=== PATIENT | female | born 1990 ===

== ENCOUNTER 2019-07-09 18:13 | Emergency (ER) | payer SELFPAY ==
[~2019-07-09] VITALS: Ht 160 cm; Wt 60.5 kg
[2019-07-09 18:22] VITALS: BP 136/76
== END 2019-07-09 19:30 | disposition left against medical advice (07) ==
LOC: EMS 18:13
DX: S61.217A Laceration without foreign body of left little finger without damage to nail, initial encounter (principal); Z53.21 Procedure and treatment not carried out due to patient leaving prior to being seen by health care provider; W45.8XXA Other foreign body or object entering through skin, initial encounter; Y93.89 Activity, other specified; Y92.89 Other specified places as the place of occurrence of the external cause; Y99.8 Other external cause status